=== PATIENT | female | born 1940 | race Asian ===

== ENCOUNTER 2022-04-25 14:38 | Outpatient (CLI) | payer MEDICARE, BC | END 2022-04-25 14:39 | disposition home or self-care (01) | LOC: CSHMAMMO 14:38 | PROVIDERS: ATTEND Student in an Organized Health Care Education/Training Program | DX: Z13.820 Encounter for screening for osteoporosis (principal); M81.0 Age-related osteoporosis without current pathological fracture; M85.852 Other specified disorders of bone density and structure, left thigh; Z78.0 Asymptomatic menopausal state | CPT/HCPCS: 77080 ==